=== PATIENT | male | born 1970 | race African-American/Black ===

== ENCOUNTER 2020-06-05 11:59 | Emergency (ER) | payer MEDICAID ==
[~2020-06-05] VITALS: Ht 177.8 cm; Wt 127.0 kg
[2020-06-05 12:15] VITALS: BP 166/92
== END 2020-06-05 12:36 ==
LOC: ER 11:59
DX: M79.10 Myalgia, unspecified site (principal); M54.2 Cervicalgia; F19.10 Other psychoactive substance abuse, uncomplicated; F12.10 Cannabis abuse, uncomplicated; Z88.0 Allergy status to penicillin

== ENCOUNTER 2020-06-10 22:27 | Emergency (ER) | payer MEDICAID ==
[~2020-06-10] VITALS: Ht 182.9 cm; Wt 136.1 kg
[2020-06-11 00:06] LABS: Basophils # (auto) 0 10 ^3/uL (0-0.2); Basophils % (auto) 0.7 % (0.0-2.0); Eosinophils # (auto) 0.2 10 ^3/uL (0-0.8); Eosinophils % (auto) 3.2 % (0.0-7.0); Hematocrit 39.1 % (41.0-53.0); Hemoglobin 13.1 g/dL (13.5-17.5); Lymphocytes # (auto) 1.5 10 ^3/uL (0.4-5.4); Lymphocytes % (auto) 21.7 % (10.0-50.0); Mean Corpuscular Hemoglobin 31.5 pg (28.0-32.0); Mean Corpuscular Hgb Conc. 33.6 g/dL (32.0-36.0); Mean Corpuscular Volume 93.9 fL (80.0-100.0); Monocytes # (auto) 0.6 10 ^3/uL (0-1.3); Neutrophils # (auto) 4.5 10 ^3/uL (1.6-8.6); Neutrophils % (auto) 66.4 % (37.0-80.0); Nucleated Red Blood Cells % 0.1 %; Platelet Count (auto) 218 10^3/uL (140-450); Red Blood Cells 4.16 10^6/uL (4.5-5.90); Red Cell Distribution Width 13.7 % (11.8-14.3); White Blood Cell 6.9 10^3/uL (4.4-10.8)
[2020-06-11 00:15] LABS: Blood Alcohol < 3.0 mg/dL (0-5); Lipase 120 U/L (73-393); Magnesium 1.9 mg/dL (1.6-2.6)
[2020-06-11 00:17] LABS: Albumin 3.9 g/dL (3.4-5.0); Calcium 9.1 mg/dL (8.5-10.1); Potassium 3.5 mmol/L (3.5-5.1); Salicylate < 1.7 mg/dL (2.8-20.0)
[2020-06-11 00:19] LABS: Acetaminophen < 2.0 ug/mL (10-30); BUN/Creatinine Ratio 12.1
[2020-06-11 00:20] LABS: Lactic Acid w/Reflex 2.3 mmol/L (0.4-2.0)
[2020-06-11 00:21] LABS: Bilirubin, Total 0.7 mg/dL (0.2-1.0); Total Protein 7.4 g/dL (6.4-8.2)
[2020-06-11] MEDS ORDERED: LORazepam 2MG/ML-1ML VIAL IV ONE (00:30)
[2020-06-11] MEDS ORDERED: diphenhdrAMINE HCL 50 MG/1 ML VL IV ONE (00:30)
[2020-06-11] MEDS ORDERED: HALOPERIDOL LACTATE 5 MG/ML INJ VIAL IM ONE (00:30)
[2020-06-11 00:39] LABS: INR 1.06 (0.9-1.15)
[2020-06-11 03:08] LABS: Urine Bacteria FEW /hpf (None Seen); Urine Blood Negative /uL (Negative); Urine Hyaline Cast MANY /lpf (0 - 2); Urine Mucus MANY (None Seen); Urine Specific Gravity 1.036 (1.001-1.035); Urine WBC 23 /hpf (0 - 3); Urine WBC Clumps PRESENT /hpf (None Seen)
[2020-06-11 03:14] LABS: Amphetamine Screen, Urine NEGATIVE (NEGATIVE); Barbiturate Scree,Urine NEGATIVE (NEGATIVE); Benzodiazephine Screen, Urine NEGATIVE (NEGATIVE); Cannabinoid Screen, Urine POSITIVE (NEGATIVE); Cocaine Screen, Urine POSITIVE (NEGATIVE); Opiate Scree,Urine NEGATIVE (NEGATIVE); Phencyclidine Screen, Urine POSITIVE (NEGATIVE)
[2020-06-11 04:04] VITALS: BP 141/71
== END 2020-06-11 04:09 | disposition home or self-care (01) ==
LOC: ER 22:28
DX: F16.10 Hallucinogen abuse, uncomplicated (principal); I10 Essential (primary) hypertension; F12.10 Cannabis abuse, uncomplicated; Z88.0 Allergy status to penicillin
CPT/HCPCS: 36415; 80053; 80307; 80320; 80329; 81001; 82962; 83605; 83690; 83735; 85025; 85610; 93005